=== PATIENT | female | born 1945 | race Caucasian/White ===

== ENCOUNTER → 2016-07-16 | Outpatient (CLI) | payer OTHER ==
[~2016-07-16] MED LIST: CYCL5TAB PO; DOXY100C PO; E 101000 PO; EZET10 PO; FISH1000 PO; LIFI1DRO EACH EYE; METH750T2 PO; NAPR40TA PO; OCUVCAP2 PO; ROSU20 PO; ROSU40 PO; TOBRSUS9 RIGHT EYE; VITA10007 PO; ZETI10TA5 PO
[2016-07-16 09:54] LABS: MEAN CELL VOLUME 89.2 FL (80.0-100.0); MEAN CORPUSCULAR HEMOGLOBIN 29.2 PG (27.0-34.0); MEAN CORPUSCULAR HGB CONC 32.7 % (32.0-36.0); PLATELET COUNT 209 TH/MM3 (150-450); RED BLOOD COUNT 4.26 MIL/MM3 (4.00-5.30); RED CELL DISTRIBUTION WIDTH 13.7 % (11.6-17.2); REVIEW FLAG FINAL; WHITE BLOOD COUNT 4.9 TH/MM3 (4.0-11.0)
[2016-07-16 10:36] LABS: ANION GAP 8 MEQ/L (5-15); AST (GOT) 26 U/L (15-37); BICARBONATE 27.2 MEQ/L (21.0-32.0); BLOOD UREA NITROGEN 16 MG/DL (7-18); CHLORIDE 105 MEQ/L (98-107); GLOMERULAR FILTRATION RATE 69 ML/MIN (>89); GLUCOSE,FASTING 84 MG/DL (74-99); POTASSIUM 4.3 MEQ/L (3.5-5.1); SODIUM (NA) 140 MEQ/L (136-145)
[2016-07-16 10:47] LABS: ALKALINE PHOSPHATASE 71 U/L (45-117); ALT (GPT) 27 U/L (10-53); HDL CHOLESTEROL 75.1 MG/DL (40.0-60.0); LDL CHOLESTEROL 186 MG/DL (0-99); TOTAL BILIRUBIN ADULT 0.5 MG/DL (0.2-1.0)
== END ==
LOC: EDSEX → CLAB 09:02
PROVIDERS: ATTEND Family Medicine
DX: E78.5 Hyperlipidemia, unspecified (principal); K21.0 Gastro-esophageal reflux disease with esophagitis; S39.012A Strain of muscle, fascia and tendon of lower back, initial encounter; X58.XXXA Exposure to other specified factors, initial encounter
CPT/HCPCS: 36415; 80053; 80061; 84443; 85027

== ENCOUNTER → 2016-09-16 | Outpatient (CLI) | payer OTHER, MEDICARE ==
[~2016-09-16] VITALS: Ht 170.2 cm; Wt 70.0 kg
[~2016-09-16] MED LIST changes: +CHLORHEXIDINE GLUCONATE 2 % 1 PACK (2 CLOTHS) TOPICAL SCH; -EZET10 PO; +INSULIN HUMAN REGULAR 1,000 UNITS/10 ML VIAL SQ PRN; +LACTATED RINGER'S 1000 ML IV SCH; -METH750T2 PO; +METOPROLOL TARTRATE 25 MG TAB PO PRN; -NAPR40TA PO; +POVIDONE IODINE 5% (ANTISEPSIS KIT) 4 APPLICATIONS EACH NARE SCH; +PROPOFOL 200 MG/20 ML AMP IV ONE; -ROSU20 PO; +SODIUM CHLORID 0.9% 500 ML IV SCH
[2016-09-16 12:22] VITALS: BP 152/76; PULSE 73; RESP 18; TEMP 98.1; O2SAT 99
[2016-09-16 14:50] VITALS: TEMP 97.9
[2016-09-16 15:07] VITALS: BP 138/61; PULSE 61; RESP 18; O2SAT 100
--- NOTE | 2016-09-17 07:30 | EKG ---
Date Performed: 09/16/2016 Time Performed: 12:14:31 PTAGE: 71 years EKG: Sinus rhythm POSSIBLE LEFT ATRIAL ENLARGEMENT POSSIBLE RIGHT VENTRICULAR CONDUCTION DELAY BORDERLINE ECG Compared to PREVIOUS TRACING , there has been a resolution of the tachycardia and improvement in the inferior lateral ST segment changes. Clinical correlation is advised. PREVIOUS TRACIN08/13/2009 14 .44 DOCTOR: Monique Bhagat Interpretating Date/Time 09/17/2016 07:29:34
--- NOTE | 2016-09-18 08:01 | MR ---
cc: FREDERICK GORE M.D. OSITO SILVERIO DATE: 09/16/2016 PROCEDURE: Esophagogastroduodenoscopy and biopsy. DATE OF : 1945 INDICATION FOR THE PROCEDURE: The patient is a 71-year-old white female with nonspecific abdominal pain. The procedure is being done to evaluate this situation. Her CAT scan of the abdomen and pelvis did not elicit the etiology of her symptoms. ENDOSCOPIST: Frederick Gore MD ASSISTANTS: Gastrointestinal laboratory personnel. SCOPE: Pentax video Olympus adult gastroscope. 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 PHYSICAL EXAM: VITAL SIGNS: Quite stable. She is afebrile. LUNGS: Unremarkable. HEART: No murmur. ABDOMEN: Soft, nontender. NEUROLOGIC: She is alert and oriented x 3. CONTINUOUS MONITORING: The patient had routine blood pressure monitoring, pulse oximeter/oxygen, and cardiac monitoring. INFORMED CONSENT: Obtained with full verbal understanding, the indication for procedure (see above), risks and complications (bleeding, perforation, infection, arrhythmias, mediastinitis, small possibility of , etc.), limitations (we may not see everything due to prep and anatomy especially if there is a lot of blood in the stomach or food is there, etc.), alternatives (upper GI, small bowel follow through, surgery, etc.), benefits (we can potentially see the entire esophagus, stomach, and part of the duodenum, and biopsy, cauterize, inject or dilate various lesions or abnormalities if needed, etc.) All questions were answered, all parties agreed to the procedure. DESCRIPTION OF PROCEDURE: The patient was placed in the left lateral decubitus position. The above noted sedation was given in very slow incremental doses. Once an optimal level of sedation was achieved, then the above mentioned gastroscope was inserted and passed into the hypopharyngeal area, esophagus which was inspected in its entire length, through the stomach, which was seen in straight view, as well as retroflex view, and the gastric pool was suctioned. The stomach was fully insufflated. The pylorus was entered and the scope passed through the duodenal bulb, second and third portion. All air and secretion were suctioned prior to removal of the scope. FINDINGS: 1. Esophagus: The gastroesophageal junction was located at 38 cm. No mucosal lesions, hiatal hernia or esophageal varices seen. 2. Stomach: The stomach was seen on straight view as well as retroflex view. It did distend quite fully. No masses or gastric varices, ulcers or erosions seen. There were multiple polyps (less than 5 mm) noted in the fundus and body of the stomach. They were all sessile. Multiple were biopsied but there were too many to remove. Biopsy was also taken of the antrum and angularis to check for H. Pylori. No peptic ulcer disease noted. 3. Duodenum: Pylorus was patent. Duodenal bulb, second and third portions grossly unremarkable. SPECIMEN: Stomach. TOLERANCE OF PROCEDURE: The scope was totally withdrawn. The patient, other than hiccups, tolerated the procedure quite well. There were no immediate complications. Lungs, heart, vital signs and the rest of the physical exam is unchanged post-procedure. IMPRESSION: 1. Gastric polyps - multiple. Biopsies taken. 2. Abdominal pain. RECOMMENDATIONS: 1. Proceed with colonoscopy today. 2. Further recommendations once the colonoscopy is done. Frederick Gore MD SP/EVANGELINA /2:54 PM /7:48 AM
--- NOTE | 2016-09-18 08:25 | MR ---
cc: FREDERICK GORE M.D. OSITO SILVERIO DATE: 09/16/2016 PROCEDURE PERFORMED: Total colonoscopy, ileoscopy and biopsy note. DATE OF : 1945 INDICATIONS FOR PROCEDURE: The patient is a 71-year-old white female with abdominal pain and constipation. Her CAT scan did not elicit the etiology of her abdominal pain. This procedure is being done to evaluate the source of this problem. ENDOSCOPIST: Frederick Gore MD ASSISTANTS: Gastrointestinal laboratory personnel. INSTRUMENT/SCOPE: Pentax adult Olympus colonoscope. TYPE OF PREP: GoLYTELY prep - Split Prep. The preparation was fair. The patient also had simethicone through the scope to break up bubbles. 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 EXTENT OF EXAM: Terminal ileum. PHYSICAL EXAM: VITAL SIGNS: Quite stable. She is afebrile. LUNGS: Unremarkable. HEART: No murmurs. ABDOMEN: Soft, nontender. NEUROLOGIC: She is sleep because she had received Diprivan for an upper endoscopy beforehand. CONTINUOUS MONITORING: The patient had routine blood pressure monitoring, pulse oximeter/oxygen, and cardiac monitoring were continued throughout the procedure. INFORMED CONSENT: Obtained with full verbal understanding, the indication for procedure (see above), risks and complications (bleeding, perforation, infection, arrhythmias, small possibility of , etc.), benefits (we can potentially see the entire colon, remove lesions, cauterized lesions, biopsy lesions, or inject lesions, etc.), alternatives (BE, flex-sig, surgery, etc.), limitations (we may not see everything secondary to prep and anatomy in addition, the patient understands the concept of a flat adenoma which is usually not seen on a colonoscopy. In other words, the patient understands that most colon cancers occur from colon polyps, however, a handful of colon cancers occur without an apparent colon polyp and occur from a flat adenoma. So, you can have a normal colonoscopy and develop a colon cancer years after the index normal colonoscopy. The patient also understands the inherent miss rate for polyps and a malignancy). The patient also understands the fact that I may not be able to complete the exam in its entirety. All questions were answered and all parties agreed to the procedure. DESCRIPTION OF PROCEDURE: With the patient in the left lateral decubitus position a rectal exam was done. No significant pathology was felt. The abovementioned colonoscope was inserted and passed through a redundant and spastic sigmoid colon to the descending colon, through the splenic flexure, transverse colon which appeared to dip into the pelvis, through the hepatic flexure, ascending colon and eventually into the cecum. Initially the cecum could not be seen well due to retained liquid stool. This was washed and lavaged and the appendiceal opening and ileocecal valve were noted as well as the cecum and these were unremarkable. The terminal ileum what could be seen was benign. As the scope was drawn back, there was no mass, AVM, diverticula or signs of inflammatory bowel disease. In the proximal ascending colon near the ileocecal valve, there was a 4-mm flat pale yellow polyp. This was cold biopsied and removed. In the distal transverse colon there was a 3-mm flat polyp which was also cold biopsied and removed. Retroflexion was accomplished in the rectum. Grade II hemorrhoids were noted; these were not bleeding. After the exam there were no AVMs, other polyps, masses or signs of any inflammatory bowel disease. I did not see any diverticulosis. SPECIMEN: Ascending colon polyp and transverse colon polyp. TOLERANCE OF PROCEDURE: The scope was totally withdrawn and, other than hiccups, the patient tolerated the procedure quite well. No immediate complications. Lungs, heart, abdomen, vital signs and the rest of the physical exam was unchanged following the procedure. The patient was transported in a stable state to the recovery area. IMPRESSION: 1. Colon polyps as mentioned above. 2. Internal hemorrhoids. 3. Abdominal pain/constipation. PLAN: 1. Post-procedure protocol was followed. 2. Patient encouraged to call our office in 7 to 10 business days for results of her biopsies. 3. The patient may be discharged when anesthesia protocol is met. 4. Resume home medications and diet. 5. Further recommendations depending on what the biopsies show. MD JD Mcdaniel/EVANGELINA /2:58 PM /8:01 AM
== END ==
LOC: EDSEX → HEND 11:45
PROVIDERS: ATTEND Internal Medicine Gastroenterology
DX: K59.00 Constipation, unspecified (principal); K31.7 Polyp of stomach and duodenum; K64.8 Other hemorrhoids; K63.5 Polyp of colon; Z01.810 Encounter for preprocedural cardiovascular examination
CPT/HCPCS: 88305; 88312; 93005

== ENCOUNTER → 2016-12-15 | Outpatient (CLI) | payer OTHER, MEDICARE ==
[~2016-12-15] MED LIST changes: -CHLORHEXIDINE GLUCONATE 2 % 1 PACK (2 CLOTHS) TOPICAL SCH; -DOXY100C PO; -INSULIN HUMAN REGULAR 1,000 UNITS/10 ML VIAL SQ PRN; -LACTATED RINGER'S 1000 ML IV SCH; -LIFI1DRO EACH EYE; -METOPROLOL TARTRATE 25 MG TAB PO PRN; -POVIDONE IODINE 5% (ANTISEPSIS KIT) 4 APPLICATIONS EACH NARE SCH; -PROPOFOL 200 MG/20 ML AMP IV ONE; -SODIUM CHLORID 0.9% 500 ML IV SCH; -VITA10007 PO
[2016-12-15 08:41] LABS: HEMATOCRIT 37.5 % (39.0-51.0); MEAN CELL VOLUME 88.6 FL (80.0-100.0); MEAN CORPUSCULAR HEMOGLOBIN 29.1 PG (27.0-34.0); MEAN CORPUSCULAR HGB CONC 32.9 % (32.0-36.0); PLATELET COUNT 198 TH/MM3 (150-450); RED BLOOD COUNT 4.24 MIL/MM3 (4.50-5.90); RED CELL DISTRIBUTION WIDTH 13.2 % (11.6-17.2); REVIEW FLAG FINAL; WHITE BLOOD COUNT 4.8 TH/MM3 (4.0-11.0)
[2016-12-15 09:04] LABS: ANION GAP 6 MEQ/L (5-15); AST (GOT) 34 U/L (15-37); BICARBONATE 28.3 MEQ/L (21.0-32.0); BLOOD UREA NITROGEN 15 MG/DL (7-18); CHLORIDE 104 MEQ/L (98-107); GLOMERULAR FILTRATION RATE 85 ML/MIN (>89); GLUCOSE,FASTING 85 MG/DL (74-99); POTASSIUM 4.3 MEQ/L (3.5-5.1); SODIUM (NA) 138 MEQ/L (136-145)
[2016-12-15 09:05] LABS: ALT (GPT) 28 U/L (12-78)
[2016-12-15 09:15] LABS: ALKALINE PHOSPHATASE 72 U/L (45-117); LDL CHOLESTEROL 192 MG/DL (0-99); TOTAL BILIRUBIN ADULT 0.5 MG/DL (0.2-1.0)
== END ==
LOC: CLAB 08:09
PROVIDERS: ATTEND Family Medicine
DX: K21.0 Gastro-esophageal reflux disease with esophagitis (principal); R10.30 Lower abdominal pain, unspecified; E78.5 Hyperlipidemia, unspecified; S39.012A Strain of muscle, fascia and tendon of lower back, initial encounter; X58.XXXA Exposure to other specified factors, initial encounter
CPT/HCPCS: 36415; 80053; 80061; 84443; 85027

== ENCOUNTER → 2017-04-16 | Outpatient (CLI) | payer OTHER, MEDICARE ==
[2017-04-16 08:42] LABS: HEMATOCRIT 36.9 % (35.0-46.0); MEAN CELL VOLUME 89.4 FL (80.0-100.0); MEAN CORPUSCULAR HEMOGLOBIN 29.8 PG (27.0-34.0); MEAN CORPUSCULAR HGB CONC 33.3 % (32.0-36.0); PLATELET COUNT 195 TH/MM3 (150-450); RED BLOOD COUNT 4.13 MIL/MM3 (4.00-5.30); RED CELL DISTRIBUTION WIDTH 13.6 % (11.6-17.2); REVIEW FLAG FINAL; WHITE BLOOD COUNT 4.5 TH/MM3 (4.0-11.0)
[2017-04-16 09:23] LABS: ANION GAP 7 MEQ/L (5-15); AST (GOT) 33 U/L (15-37); BICARBONATE 25.9 MEQ/L (21.0-32.0); BLOOD UREA NITROGEN 14 MG/DL (7-18); CHLORIDE 104 MEQ/L (98-107); GLOMERULAR FILTRATION RATE 67 ML/MIN (>89); GLUCOSE,FASTING 82 MG/DL (74-99); SODIUM (NA) 137 MEQ/L (136-145)
[2017-04-16 09:24] LABS: ALT (GPT) 31 U/L (10-53)
[2017-04-16 09:34] LABS: ALKALINE PHOSPHATASE 65 U/L (45-117); HDL CHOLESTEROL 76.9 MG/DL (40.0-60.0); LDL CHOLESTEROL 182 MG/DL (0-99); TOTAL BILIRUBIN ADULT 0.6 MG/DL (0.2-1.0)
== END ==
LOC: CLAB 07:52
PROVIDERS: ATTEND Family Medicine
DX: E78.5 Hyperlipidemia, unspecified (principal); K21.0 Gastro-esophageal reflux disease with esophagitis; S39.012A Strain of muscle, fascia and tendon of lower back, initial encounter; X58.XXXA Exposure to other specified factors, initial encounter
CPT/HCPCS: 36415; 80053; 80061; 84443; 85027

== ENCOUNTER → 2017-09-02 | Outpatient (CLI) | payer MEDICARE ==
[~2017-09-02] MED LIST changes: +EZET10 PO; -ZETI10TA5 PO
[2017-09-02 11:14] LABS: HEMATOCRIT 36.5 % (35.0-46.0); HEMOGLOBIN 12.2 GM/DL (11.6-15.3); MEAN CELL VOLUME 88.6 FL (80.0-100.0); MEAN CORPUSCULAR HEMOGLOBIN 29.6 PG (27.0-34.0); MEAN CORPUSCULAR HGB CONC 33.5 % (32.0-36.0); MEAN PLATELET VOLUME 9.3 FL (7.0-11.0); PLATELET COUNT 211 TH/MM3 (150-450); RED BLOOD COUNT 4.12 MIL/MM3 (4.00-5.30); RED CELL DISTRIBUTION WIDTH 14.4 % (11.6-17.2)
[2017-09-02 11:20] LABS: ALBUMIN 3.9 GM/DL (3.4-5.0); AST (GOT) 32 U/L (15-37); BICARBONATE 28.2 MEQ/L (21.0-32.0); BLOOD UREA NITROGEN 15 MG/DL (7-18); CHLORIDE 102 MEQ/L (98-107); CREATININE 0.83 MG/DL (0.50-1.00); GLOMERULAR FILTRATION RATE 68 ML/MIN (>89); GLUCOSE,FASTING 87 MG/DL (74-99); SODIUM (NA) 137 MEQ/L (136-145)
[2017-09-02 11:22] LABS: ALT (GPT) 30 U/L (10-53); CHOLESTEROL 260 MG/DL (120-200)
[2017-09-02 11:30] LABS: ALKALINE PHOSPHATASE 72 U/L (45-117); CHOLESTEROL/ HDL RATIO 3.71 RATIO; HDL CHOLESTEROL 69.9 MG/DL (40.0-60.0); LDL CHOLESTEROL 168 MG/DL (0-99); TOTAL BILIRUBIN ADULT 0.5 MG/DL (0.2-1.0); TOTAL PROTEIN 7.5 GM/DL (6.4-8.2); TRIGLYCERIDES 113 MG/DL (42-150)
== END ==
LOC: CLAB 10:06
PROVIDERS: ATTEND Family Medicine
DX: E78.5 Hyperlipidemia, unspecified (principal); K21.0 Gastro-esophageal reflux disease with esophagitis; S39.012A Strain of muscle, fascia and tendon of lower back, initial encounter; X58.XXXA Exposure to other specified factors, initial encounter
CPT/HCPCS: 36415; 80053; 80061; 84443; 85027

== ENCOUNTER 2017-11-24 16:10 | Emergency (ER) | payer MEDICARE ==
[~2017-11-24] VITALS: Ht 170.2 cm; Wt 70.0 kg
[2017-11-24 16:18] VITALS: BP 142/71; PULSE 91; RESP 16; TEMP 98.7; O2SAT 98
[2017-11-24] MEDS ORDERED: METR0.7528 VAGINAL (16:42)
[2017-11-24] MEDS ORDERED: DIFL150T PO (16:42)
--- NOTE | 2017-11-24 16:42 | PD ---
HPI Chief Complaint: Thoracic Surgeon Problem/Complaint Time Seen by Provider: 16:29 Travel History International Travel<30 days: No Contact w/Intl Traveler<30days: No Traveled to known affect area: No History of Present Illness HPI Patient is a 72-year-old female who comes in complaining of vaginal irritation. She says that since last night she has felt a tightness and a burning to her vaginal area. She says she only feels it on the outside. She says it feels similar to an issue she had last year, for which she was prescribed MetroGel for her and this helped. She denies having any discharge. She denies any burning on urination. She denies fever chills. She denies abdominal pain. Severity is mild. PFSH Past Medical History Heart Rhythm Problems: Yes (HAD CARDIAC CATH 02/12. NEG FINDINGS, SVT WELL) High Cholesterol: Yes Diminished Hearing: No Immunizations Current: Yes Triglycerides - High: Yes Menopausal: Yes Past Surgical History Tonsillectomy: Yes Social History Alcohol Use: No Tobacco Use: No Substance Use: No Allergies-Medications (Allergen,Severity, Reaction): Coded Allergies: niacin (Unverified Adverse Reaction, Severe, Flushing, 11/24/17) Reported Meds & Prescriptions Reported Meds & Active Scripts Active Tobramycin-Dexamethasone Opth Drops 0.3-0.1 % Susp 1 Drop RIGHT EYE DAILY PRN Reported E 1000 (Vitamin E) 1,000 Unit Cap 1 Tab PO WEEKLY Fish Oil ([place]-3 Fatty Acids) 1,000 Mg Cap 1 Tab PO DAILY Ocuvite Adult 50+ (Multiple Vitamins W/ Minerals) 1 Cap 1 Cap PO DAILY Crestor (Rosuvastatin Calcium) 40 Mg Tab 40 Mg PO DAILY Zetia (Ezetimibe) 10 Mg Tab 10 Mg PO DAILY Flexeril (Cyclobenzaprine HCl) 5 Mg Tab 5 Mg PO NEEDED Review of Systems General / Constitutional: No: Fever, Chills HENT: No: Headaches, Lightheadedness Cardiovascular: No: Chest Pain or Discomfort Respiratory: No: Shortness of Breath Gastrointestinal: No: Nausea, Vomiting, Abdominal Pain Musculoskeletal: No: Myalgias Skin: No Rash, No Change in Pigmentation Neurologic: No: Weakness, Dizziness Physical Exam Narrative GENERAL: Awake and alert, in no acute distress. SKIN: Focused skin assessment warm/dry. No wounds or signs of infection. HEAD: Atraumatic. Normocephalic. EYES: Pupils equal and round. No scleral icterus. No injection or drainage. ENT: Mucous membranes pink and moist. CARDIOVASCULAR: Regular rate and rhythm. No murmur appreciated. RESPIRATORY: No accessory muscle use. Clear to auscultation. Breath sounds equal bilaterally. : Mild erythema of the labia. No evidence of discharge. No ulcerations. MUSCULOSKELETAL: No obvious deformities. No clubbing. No cyanosis. No edema. NEUROLOGICAL: Awake and alert. No obvious cranial nerve deficits. Motor grossly within normal limits. Normal speech. Data Data Last Documented VS Vital Signs Date Time Temp Pulse Resp B/P (MAP) Pulse Ox O2 Delivery O2 Flow Rate FiO2 11/24/17 16:18 98.7 91 16 142/71 (94) 98 MDM Medical Decision Making Medical Screen Exam Complete: Yes Emergency Medical Condition: Yes Medical Record Reviewed: Yes Differential Diagnosis Vaginal yeast infection versus BV versus skin irritation Narrative Course Patient is a 72-year-old female who comes in complaining of vaginal discomfort. Exam shows mild erythema of the labia. Patient says that the MetroGel has helped her in the past. She will be given a new prescription for this. Also given a prescription for Diflucan as this could be yeast. Advised to finish the MetroGel and then take the Diflucan. Advised to return as needed for any worsening symptoms. 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 Diagnosis Primary Impression: Vaginal discomfort Patient Instructions: Bacterial Vaginosis (ED), General Instructions, Vulvovaginal Candidiasis (ED) Additional Instructions: Finish the MetroGel and then take the Diflucan. Follow-up with gynecology. Return to the ED as needed for any worsening symptoms. Scripts Fluconazole (Diflucan) 150 Mg Tab 150 MG PO ONCE for Infection, #1 TAB 0 Refills Prov: Masha Luis MD 11/24/17 Metronidazole Vaginal Gel (Metrogel Vaginal Gel) 0.75 % Gel 1 APPL VAGINAL HS for Infection for 5 Days, #1 TUBE 0 Refills Prov: Masha Luis MD 11/24/17 Disposition: 01 DISCHARGE HOME Condition: Stable Masha Luis MD Nov 24, 2017 16:42
== END 2017-11-24 16:58 | disposition home or self-care (01) ==
LOC: PHED 16:10
DX: N89.8 Other specified noninflammatory disorders of vagina (principal); L53.9 Erythematous condition, unspecified; E78.00 Pure hypercholesterolemia, unspecified; E78.1 Pure hyperglyceridemia; Z79.899 Other long term (current) drug therapy
CPT/HCPCS: 99283